=== PATIENT | male | born 1965 | race Two or more races ===

== ENCOUNTER 2025-02-06 15:45 | Inpatient (IN) | payer OTHER ==
[~2025-02-06] VITALS: Ht 175.3 cm; Wt 100.0 kg
[~2025-02-06 15:45] MED LIST: ALBUPOW26; LISI10TA34 PO; MONT10TA23 PO
[2025-02-06] MEDS: IPRATROPIUM BROM 0.5 MG/2.5ML INH SOL NEB ONE (15:57)
[2025-02-06] MEDS: ALBUTEROL SULF 2.5 MG/0.5ML(0.5%) NEB SOLN NEB ONE (15:57)
--- NOTE | 2025-02-06 15:58 | ED.PDOC ---
History of Present Illness HPI Comments 59-year-old male with PMHx Asthma, DM, HTN brought in by EMS presents with a chief complaint of SOB and wheezing. Patient was cleaning out his garage when he apparently started having an allergic reaction. Patient called EMS and they arrived on scene and patient was having a difficult time breathing. Patient was given a dual nebulizer treatment, Benadryl, and Magnesium by EMS. Patient was then placed on CPAP. Patients EKG shows Sinus Tachycardia with a rate of 116. Chief Complaint: Shortness of Breath Time Seen by MD: 15:48 Reviewed Notes: Medications, Allergies Allergies: Coded Allergies: NO KNOWN ALLERGIES (Unverified , 06/30/11) Home Meds Reported Medications Lisinopril (Lisinopril) 10 Mg Tab, 10 MG PO DAILY, TAB 07/03/21 Montelukast Sodium (Singulair) 10 Mg Tab, 10 MG PO DAILY, TAB 07/03/21 [Albuterol] (Albuterol) No Conflict Check, 2 PUFF PRN 06/30/11 Information Source: Emergency Med Personnel Mode of Arrival: EMS Severity: Moderate Timing: Minutes Duration: Since onset Prehospital treatment: Breathing Tx, Field Clerk, Oxygen Past Medical History PAST MEDICAL HISTORY: Asthma, HTN Surgical History: Denies all surgeries Family History Family History: Reviewed,noncontributory to illness Social History Smoker: Cigarettes, Other Alcohol: Denies ETOH Use Drugs: Marijuana Lives In: Home Constitutional: denies: chills, diaphoresis, fatigue, fever, malaise, sweats, weakness, others EENTM: denies: blurred vision, double vision, ear bleeding, ear discharge, ear drainage, ear pain, ear ringing, eye pain, eye redness, hearing loss, mouth pain, mouth swelling, nasal discharge, nose bleeding, nose congestion, nose pain, photophobia, tearing, throat pain, throat swelling, voice changes, others Respiratory: reports: shortness of breath, wheezing; denies: cough, hemoptysis, orthopnea, SOB at rest, SOB with excertion, stridor, others Cardiovascular: denies: chest pain, dizzy spells, diaphoresis, Dyspnea on exertion, edema, irregular heart beat, left arm pain, lightheadedness, palpitations, PND, syncope, others Gastrointestinal: denies: abdomen distended, abdominal pain, blood streaked bowels, constipated, diarrhea, dysphagia, difficulty swallowing, hematemesis, melena, nausea, poor appetite, poor fluid intake, rectal bleeding, rectal pain, vomiting, others Genitourinary: denies: burning, dysuria, flank pain, frequency, hematuria, incontinence, penile discharge, penile sore, pain, testicle pain, testicle swelling, urgency, others Neurological: denies: dizziness, fainting, headache, left sided numbness, left sided weakness, numbness, paresthesia, pre-existing deficit, right sided numbness, right sided weakness, seizure, speech problems, tingling, tremors, weakness, others Musculoskeletal: denies: back pain, gout, joint pain, joint swelling, muscle pain, muscle stiffness, neck pain, others Integumetry: denies: bruises, change in color, change in hair/nails, dryness, laceration, lesions, lumps, rash, wounds, others Allergic/Immunocompromised: denies: Difficulty Healing, Frequent Infections, Hives, Itching, others Hematologic/Lymphatic: denies: anemia, blood clots, easy bleeding, easy bruising, swollen glands, others Endocrine: denies: excessive hunger, excessive sweating, excessive thirst, excessive urination, flushing, intolerance to cold, intolerance to heat, unexplained weight gain, unexplained weight loss, others Psychiatric: denies: anxiety, bipolar disorder, depression, hopeless, panic disorder, schizophrenia, sleepless, suicidal, others All Other Systems: Reviewed and Negative Physical Exam General Appearance: Normal, Severe Distress HEENT: Normal ENT Inspection, Pharynx Normal, TMs Normal Neck: Full Range of Motion, Non-Tender, Normal, Normal Inspection Respiratory: Accessory Muscle Use, Chest Non-Tender, Respiratory Distress, Wheezing Cardiovascular: No Edema, No JVD, No Murmur, No Gallop, Normal Peripheral Pulses, Tachycardia Breast Exam: Deferred Gastrointestinal: No Organomegaly, Non Tender, No Pulsatile Mass, Normal Bowel Sounds, Soft Genitalia: Deferred Pelvic: Deferred Rectal: Deferred Extremities: No calf tenderness, Normal capillary refill, Normal inspection, Normal range of motion, Non-tender, No pedal edema Musculoskeletal : Apperance: Normal Neurologic: Alert, audiologist II-XII nml as Tested, No Motor Deficits, Normal Affect, Normal Mood, No Sensory Deficits Cerebellar Function: NOT DONE Reflexes: NOT DONE Skin: Dry, Normal Color, Warm Peripheral Pulses: 3+ Radial (R), 3+ Radial (L) Lymphatic: No Adenopathy Was a procedure done? Was a procedure done?: No EKG EKG : Pulse Rate (adult): 116 [place]: Normal Cardiac Rhythm: ST Block: None Hypertrophy: None ST: Normal Differential Dx Considerations may include: COPD Electrolyte imbalance X-Ray, Labs, Meds, VS Vital Signs Date Time Temp Pulse Resp B/P (MAP) Pulse Ox O2 Delivery O2 Flow Rate FiO2 02/06/25 16:00 96 Simple Mask* 6 50 02/06/25 15:59 98.4 111 23 146/98 (114) 96 98.4 02/06/25 15:58 116 02/06/25 15:55 116 02/06/25 15:52 20 97 Nasal Cannula* 2 28 02/06/25 15:51 116 02/06/25 15:45 97.6 117 27 146/98 (114) 92 97.6 02/06/25 15:45 27 97 Nasal Cannula* 2 28 Lab Test 02/06/25 16:07 Range/Units White Blood Count 9.5 4.4-10.8 10^3/uL Red Blood Count 4.67 4.5-5.90 10^6/uL Hemoglobin 14.4 13.5-17.5 g/dL Hematocrit 42.1 41.0-53.0 % Mean Corpuscular Volume 90.3 80.0-100.0 fL Mean Corpuscular Hemoglobin 30.8 28.0-32.0 pg Mean Corpuscular Hemoglobin Concent 34.1 32.0-36.0 g/dL Red Cell Distribution Width 13.5 11.8-14.3 % Platelet Count 248 140-450 10^3/uL Mean Platelet Volume 9.0 6.9-10.8 fL Neutrophils (%) (Auto) 59.0 37.0-80.0 % Lymphocytes (%) (Auto) 27.2 10.0-50.0 % Monocytes (%) (Auto) 7.6 0.0-12.0 % Eosinophils (%) (Auto) 5.8 0.0-7.0 % Basophils (%) (Auto) 0.4 0.0-2.0 % Neutrophils # (Auto) 5.6 1.6-8.6 10 ^3/uL Lymphocytes # (Auto) 2.6 0.4-5.4 10 ^3/uL Monocytes # (Auto) 0.7 0-1.3 10 ^3/uL Eosinophils # (Auto) 0.6 0-0.8 10 ^3/uL Basophils # (Auto) 0 0-0.2 10 ^3/uL Nucleated Red Blood Cells 0.1 % Sodium Level 140 136-145 mmol/L Potassium Level 3.5 3.5-5.1 mmol/L Chloride Level 102 98-107 mmol/L Carbon Dioxide Level 26 20-31 mmol/L Anion Gap 12 5-15 Blood Urea Nitrogen 15 9-23 mg/dL Creatinine 1.02 0.700-1.30 mg/dL Glomerular Filtration Rate Calc 85 >90 mL/min BUN/Creatinine Ratio 14.7 10.0-20.0 Serum Glucose 111 H 74-106 mg/dL Calcium Level 9.0 8.7-10.4 mg/dL Troponin I High Sensitivity 64 *H </=54 ng/L Current Medications Medications (Trade) Dose Ordered Sig/Nathaniel Route Start Time Stop Time Status Last Admin Albuterol (Ventolin Medneb) 20 mg ONCE ONCE NEB 02/06/25 16:00 02/06/25 16:01 DC 02/06/25 15:57 Ipratropium [place] (Atrovent Medneb) 1 mg ONCE ONCE NEB 02/06/25 16:00 02/06/25 16:01 DC 02/06/25 15:57 Methylprednisolone Sodium Succinate (Solu Medrol) 40 mg ONCE ONCE IV 02/06/25 16:00 02/06/25 16:01 DC 02/06/25 16:09 Magnesium Sulfate/ Dextrose 100 ml @ 100 mls/hr ONCE ONCE IV 02/06/25 16:00 02/06/25 16:59 DC 02/06/25 16:09 Patient alert pain Came in shortness a breath. Placed on oxygen. Was given breathing treatment. Was given magnesium. Was given steroid. Using accessory muscles when he arrived. He continues to smoke cigarettes. Counseled patient on effects of smoking cigarettes for 15 minutes. Chest x-ray reviewed does show mild inflammation. Cardiac marker slightly elevated. Demand ischemia. EKG does not show any acute changes. WBC within normal limits. Hemoglobin within normal limits. No leg swelling. Was given Lovenox. Explained to the patient that he will be admitted with oxygen. Continue monitoring. Time of 1ST Reevaluation: 15:48 Reevaluation 1ST: Unchanged Time of 2ND Reevaluation: 15:48 (EXPLAINED TO THE PATIENT THAT THEY MAY BE STAYING WITH US IN THE HOSPITAL, BUT IF STABLE FOR DISCHARGE, THEY WILL BE NOTIFIED AND SENT HOME. ) Patient Education/Counseling: Diagnosis, Treatment Family Education/Counseling: No Family Present Departure 1 Departure Time of Disposition: 17:20 Impression: Primary Impression: Acute respiratory failure Qualified Codes: J96.01 - Acute respiratory failure with hypoxia Additional Impressions: Pneumonitis Demand ischemia Disposition: ADMITTED INPATIENT Admit to: Med Surg Condition: Guarded Critical Care Note Critical Care Time?: Yes (90 min-critical care time only) Critical care comment: Placed oxygen Stability Stability form required: No Heart Score Heart Score: Heart Score Response (Comments) Value History Slightly Suspicious 0 EKG Normal 0 Age 45-64 1 Risk Factors >3 or Hx ASHD 2 Troponin 1-2 x's Normal limit 1 Total 4 I personally scribed for HARPREET POPE MD ([email or web address]) on 02/06/25 at 15:57. Electronically submitted by Robert Ayala ([email or web address]). HARPREET POPE MD February 06, 2025 15:57
[2025-02-06 16:00] VITALS: O2SAT 96
[2025-02-06] MEDS: methylPREDNISolone SOD SUCC 40 MG/ML VL IV ONE (16:09)
[2025-02-06] MEDS: MAGNESIUM SULFATE 1GM/100ML 100 ML IV ONE (16:09)
--- NOTE | 2025-02-06 16:31 | DVH ---
INDICATION: sob TECHNIQUE: Frontal view of the chest. COMPARISON: CHEST PORTABLE on DOS: 07/01/21 FINDINGS: Findings:. The heart and mediastinal contours are grossly unremarkable. There is no evidence of pleu ral disease. The lungs are clear. The bony structures of the chest are intact without fracture. IMPRESSION: 1. No evidence of acute disease.
[2025-02-06 16:36] LABS: Basophils # (auto) 0 10 ^3/uL (0-0.2); Basophils % (auto) 0.4 % (0.0-2.0); Eosinophils # (auto) 0.6 10 ^3/uL (0-0.8); Eosinophils % (auto) 5.8 % (0.0-7.0); Hematocrit 42.1 % (41.0-53.0); Hemoglobin 14.4 g/dL (13.5-17.5); Lymphocytes # (auto) 2.6 10 ^3/uL (0.4-5.4); Lymphocytes % (auto) 27.2 % (10.0-50.0); Mean Corpuscular Hemoglobin 30.8 pg (28.0-32.0); Mean Corpuscular Hgb Conc. 34.1 g/dL (32.0-36.0); Mean Corpuscular Volume 90.3 fL (80.0-100.0); Monocytes # (auto) 0.7 10 ^3/uL (0-1.3); Monocytes % (auto) 7.6 % (0.0-12.0); Neutrophils # (auto) 5.6 10 ^3/uL (1.6-8.6); Nucleated Red Blood Cells % 0.1 %; Platelet Count (auto) 248 10^3/uL (140-450); Red Blood Cells 4.67 10^6/uL (4.5-5.90); Red Cell Distribution Width 13.5 % (11.8-14.3); White Blood Cell 9.5 10^3/uL (4.4-10.8)
[2025-02-06 16:37] LABS: Chloride 102 mmol/L (98-107); Potassium 3.5 mmol/L (3.5-5.1); Sodium 140 mmol/L (136-145)
[2025-02-06 16:38] LABS: Anion Gap 12 (5-15); Carbon Dioxide 26 mmol/L (20-31)
[2025-02-06 16:44] LABS: BUN/Creatinine Ratio 14.7 (10.0-20.0); Blood Urea Nitrogen 15 mg/dL (9-23); Glucose 111 mg/dL (74-106)
[2025-02-06] MEDS: ENOXAPARIN SOD 100 MG/1 ML SYRINGE SC ONE (17:39)
[2025-02-06] MEDS: cefTRIAXone 1GM/50ML D5W 50 ML IV ONE (17:39)
[2025-02-06] MEDS ORDERED: ACETAMINOPHEN 325 MG TAB PO PRN (18:15)
[2025-02-06] MEDS ORDERED: HYDROcodone-ACET 5/325MG TAB PO PRN (18:15)
[2025-02-06] MEDS ORDERED: ONDANSETRON HCL 4 MG/2 ML VIAL IV PRN (18:15)
[2025-02-06] MEDS ORDERED: DOCUSATE SOD 100 MG CAP PO PRN (18:15)
[2025-02-06 18:35] VITALS: BP 122/68; PULSE 109; RESP 17; TEMP 98.4; O2SAT 91
--- NOTE | 2025-02-06 19:13 | DVHHP2 ---
History of Present Illness Reason for Visit: Acute respiratory failure with hypoxia History of Present Illness The patient is a 59-year old male with past medical history of asthma and hypertension presented to [facility] ED with complaint of shortness of breaths. Patient's symptoms progressively get worse with wheezing, increased work of breathing, getting worse that prompted this visit. Patient was seen and evaluated in the ED, laboratory data shows WBC 9.5 platelets 248, sodium 140, potassium 3.5, BUN 15, creatinine 1.02, glucose 111, troponin 64, blood pressure 146/98, heart rate 112, temperature 98.4� F, O2 saturation 96% on simple mask. Patient was started on IV Solu-Medrol, given breathing treatment, please see medication orders section in the computer. On my assessment, patient denied chest pain, no headache, no dizziness, no diaphoresis, currently on oxygen, no nausea, no vomiting, no fever, no chills. Patient was admitted for further evaluation and medical management. Past Medical History Asthma, HTN Past Surgical History Denies all surgeries Family History Reviewed, noncontributory to the management of this case. Past Social History The patient lives at home, denies alcohol abuse, smokes cigarettes, uses marijuana. Review of Systems Constitutional: No: Fever, Chills, Sweats, Weakness, Malaise, Other Eyes: No: Pain, Vision change, Conjunctivae inflammation, Eyelid inflammation, Other, Redness ENT: No: Ear pain, Ear discharge, Nose pain, Nose discharge, Nose congestion, Mouth pain, Mouth swelling, Throat pain, Throat swelling, Other Respiratory: Shortness of breath, Wheezing; No: Cough, Dry, SOB with excertion, Hemoptysis, Pleuritic Pain, Sputum, Wheezing, Other Cardiovascular: No: Chest Pain, Palpitations, Orthopnea, Paroxysmal Noc. Dyspnea, Edema, Lt Headedness, Other Gastrointestinal: No: Nausea, Vomiting, Abdominal Pain, Diarrhea, Constipation, Melena, Hematochezia, Other Genitourinary: No Dysuria, No Frequency, No Incontinence, No Hematuria, No Retention, No Other Musculoskeletal: No: other, neck pain, shoulder pain, arm pain, back pain, hand pain, leg pain, foot pain Skin: No: Rash, Lesions, Jaundice, Bruising, Other Neurological: No: Weakness, Numbness, Incoordination, Change in speech, Confusion, Seizures, Other Allergies: Coded Allergies: NO KNOWN ALLERGIES (Unverified , 06/30/11) Medications Current Medications Medications Dose Ordered Sig/Nathaniel Route Start Time Stop Time Status Last Admin Dose Admin Albuterol 2.5 mg Q4HPRN PRN NEB 02/06/25 18:15 Ipratropium [place] 0.5 mg Q4HPRN PRN NEB 02/06/25 18:15 Methylprednisolone Sodium Succinate 40 mg Q8HR IV 02/06/25 22:00 Famotidine 20 mg Q12HR IV 02/06/25 22:00 Hydralazine HCl 10 mg Q6HP PRN IV 02/06/25 18:15 Metoprolol Tartrate 25 mg BID PO 02/06/25 22:00 Sodium Chloride 10 ml Q8HR IV 02/06/25 22:00 Acetaminophen/ Hydrocodone Bitart 1 tab Q4HP PRN PO 02/06/25 18:15 Ondansetron HCl 4 mg Q4HP PRN IV 02/06/25 18:15 Docusate Sodium 100 mg BIDPRN PRN PO 02/06/25 18:15 Acetaminophen 650 mg Q6HP PRN PO 02/06/25 18:15 Exam Vital Signs Vital Signs Date Time Temp Pulse Resp B/P (MAP) Pulse Ox O2 Delivery O2 Flow Rate FiO2 02/06/25 18:35 98.4 109 17 122/68 91 2.0 98.4 02/06/25 16:00 Simple Mask* 50 General Appearance: Alert, Oriented X3, Cooperative, No acute distress HEENT: Atraumatic, EOMI, Mucous membr. moist/pink Respiratory: Normal air movement, Other (Diminished breath sounds) Cardiovascular: Regular rate, Normal S1, Normal S2, No murmurs Abdominal: Normal bowel sounds, Soft, No tenderness, No hepatospenomegaly, No masses Extremities: No clubbing, No cyanosis, No edema, Normal pulses, No tendernes s/swelling Skin: No rashes, No breakdown, No significant lesion Neuro: Normal gait, Normal speech, Strength at 5/5 X4 ext, Normal tone, Sensation intact, Cranial nerves 3-12 NL, Reflexes 2+ Psych/Mental Status: Mental status NL, Mood NL Labs/Xrays Labs Test 02/06/25 16:07 Range/Units White Blood Count 9.5 4.4-10.8 10^3/uL Red Blood Count 4.67 4.5-5.90 10^6/uL Hemoglobin 14.4 13.5-17.5 g/dL Hematocrit 42.1 41.0-53.0 % Mean Corpuscular Volume 90.3 80.0-100.0 fL Mean Corpuscular Hemoglobin 30.8 28.0-32.0 pg Mean Corpuscular Hemoglobin Concent 34.1 32.0-36.0 g/dL Red Cell Distribution Width 13.5 11.8-14.3 % Platelet Count 248 140-450 10^3/uL Mean Platelet Volume 9.0 6.9-10.8 fL Neutrophils (%) (Auto) 59.0 37.0-80.0 % Lymphocytes (%) (Auto) 27.2 10.0-50.0 % Monocytes (%) (Auto) 7.6 0.0-12.0 % Eosinophils (%) (Auto) 5.8 0.0-7.0 % Basophils (%) (Auto) 0.4 0.0-2.0 % Neutrophils # (Auto) 5.6 1.6-8.6 10 ^3/uL Lymphocytes # (Auto) 2.6 0.4-5.4 10 ^3/uL Monocytes # (Auto) 0.7 0-1.3 10 ^3/uL Eosinophils # (Auto) 0.6 0-0.8 10 ^3/uL Basophils # (Auto) 0 0-0.2 10 ^3/uL Nucleated Red Blood Cells 0.1 % Sodium Level 140 136-145 mmol/L Potassium Level 3.5 3.5-5.1 mmol/L Chloride Level 102 98-107 mmol/L Carbon Dioxide Level 26 20-31 mmol/L Anion Gap 12 5-15 Blood Urea Nitrogen 15 9-23 mg/dL Creatinine 1.02 0.700-1.30 mg/dL Glomerular Filtration Rate Calc 85 >90 mL/min BUN/Creatinine Ratio 14.7 10.0-20.0 Serum Glucose 111 H 74-106 mg/dL Calcium Level 9.0 8.7-10.4 mg/dL Troponin I High Sensitivity 64 *H </=54 ng/L PATIENT: LEONIE UMANA ACCT: [id number] UNIT: [id number] : 1965 LOC: ER ROOM / BED: / AGE / SEX: 59 / M ADM STATUS: REG ER SERVICE 1606 ORDERING PHYSICIAN: HARPREET POPE MD PROCEDURE(s): CXRP - CHEST PORTABLE REASON: sob ORDER NUMBER(s): [id number], ACCESSION NUMBER(s): [id number] INDICATION: sob TECHNIQUE: Frontal view of the chest. COMPARISON: CHEST PORTABLE on DOS: 07/01/21 FINDINGS: Findings: The heart and mediastinal contours are grossly unremarkable. There is no evidence of pleural disease. The lungs are clear. The bony structures of the chest are intact without fracture. IMPRESSION: 1. No evidence of acute disease. Assessment/Plan Assessment/Plan Acute respiratory failure Demand ischemia Pneumonitis Acute respiratory failure with hypoxia Plan 1. Admit to telemetry units 2. Breathing treatment 3. Pain control management 4. Management of fluids and electrolytes 5. Consultation for hospitalist 6. Diagnostic tests chest x-ray 7. DVT prophylaxis-on SCDs 8. Repeat labs CBC, CMP in a.m. 9. Continue with current medical management 10. Treatment plan discussed with patient and RN. Patient verbalized understanding. Plan discussed with: Patient, Other (RN) My Orders Orders - WILLIAM SUN DNP Procedure Category Date Status Time Albuterol Medneb PHA 02/06/25 In Process (Ventolin Medneb) 18:15 Ipratropium Medneb PHA 02/06/25 In Process (Atrovent Medneb) 18:15 Methylprednisolone PHA 02/06/25 In Process Sod Succ (Solu Medrol 22:00 Famotidine Injection PHA 02/06/25 In Process (Pepcid Injection) 22:00 Hydralazine Injection PHA 02/06/25 In Process (Apresoline Inject 18:15 Metoprolol Tartrate PHA 02/06/25 In Process Tablet (Lopressor Ta 22:00 Allergies GERALDINE 02/06/25 In Process 18:04 Code Status CODE 02/06/25 Transmitted 18:04 Sodium Chloride Lock PHA 02/06/25 In Process (Saline Lock Ns) 22:00 Oxygen Per Hour RT 02/06/25 Transmitted 18:04 Hydrocodone-Acet PHA 02/06/25 In Process 5/325mg Tab ([place] 18:15 Ondansetron Hcl PHA 02/06/25 In Process (Zofran) 18:15 Docusate Sodium PHA 02/06/25 In Process Capsule (Colace 18:15 Complete Blood Count LAB 02/07/25 Verified 04:00 Comprehensive LAB 02/07/25 Verified Metabolic Panel 04:00 Cardiac DIET 02/06/25 Transmitted Diet-2gna,Lofat,Lochol Dinner Condition: Serious GERALDINE 02/06/25 In Process 18:04 Acetaminophen Tablet PHA 02/06/25 In Process (Tylenol Tablet) 18:15 Bedrest With Bathroom GERALDINE 02/06/25 In Process Privileg 18:04 Sequential GERALDINE 02/06/25 In Process Compression Device Problem List: (1) Acute respiratory failure (2) Demand ischemia (3) Pneumonitis (4) Acute respiratory failure with hypoxia Date of Service: February 06, 2025 Billing Provider: WILLIAM SUN DNP Common Visit Codes: [id number] INP/OBS CARE (HIGH) WILLIAM SUN DNP February 06, 2025 19:13
[2025-02-06] MEDS ORDERED: NITROGLYCERIN 0.4 MG SL TAB SL PRN (19:15)
[2025-02-06] MEDS ORDERED: MORPHINE SULFATE INJ 2 MG/ml SYRG IV PRN (19:15)
[2025-02-06 21:00] VITALS: PULSE 98; RESP 18; O2SAT 94
[2025-02-06] MEDS: METOPROLOL TARTRATE 25 MG TAB PO SCH (22:01)
[2025-02-06] MEDS: FAMOTIDINE (10MG/ML) 2ML VL IV SCH (22:02)
[2025-02-06] MEDS: methylPREDNISolone SOD SUCC 40 MG/ML VL IV SCH (22:02)
[2025-02-06] MEDS: SODIUM CHLOR 0.9% PF (SALINE LOCK) 10ML VIAL/SYR IV SCH (22:02)
[2025-02-07] VITALS (9 sets, daily range): BP systolic 141; BP diastolic 65; PULSE 61–78; RESP 13–18; TEMP 98.2; O2SAT 94–99
[2025-02-07] MEDS: IPRATROPIUM BROM 0.5 MG/2.5ML INH SOL NEB PRN (02:41)
[2025-02-07] MEDS: ALBUTEROL SULF 2.5 MG/0.5ML(0.5%) NEB SOLN NEB PRN (02:41)
[2025-02-07 06:08] LABS: Basophils # (auto) 0 10 ^3/uL (0-0.2); Basophils % (auto) 0.1 % (0.0-2.0); Eosinophils # (auto) 0 10 ^3/uL (0-0.8); Eosinophils % (auto) 0.1 % (0.0-7.0); Hematocrit 42.1 % (41.0-53.0); Hemoglobin 14.3 g/dL (13.5-17.5); Lymphocytes # (auto) 0.6 10 ^3/uL (0.4-5.4); Lymphocytes % (auto) 10.4 % (10.0-50.0); Mean Corpuscular Hemoglobin 30.5 pg (28.0-32.0); Mean Corpuscular Hgb Conc. 34.1 g/dL (32.0-36.0); Mean Corpuscular Volume 89.6 fL (80.0-100.0); Monocytes # (auto) 0.1 10 ^3/uL (0-1.3); Monocytes % (auto) 1.6 % (0.0-12.0); Neutrophils # (auto) 4.9 10 ^3/uL (1.6-8.6); Neutrophils % (auto) 87.8 % (37.0-80.0); Nucleated Red Blood Cells % 0.2 %; Platelet Count (auto) 250 10^3/uL (140-450); Red Cell Distribution Width 13.4 % (11.8-14.3); White Blood Cell 5.5 10^3/uL (4.4-10.8)
[2025-02-07 06:11] LABS: Alanine Aminotransferase 18 U/L (7-40); Albumin 4.5 g/dL (3.2-4.8); Alkaline Phosphatase 52 U/L (46-116); Anion Gap 11 (5-15); Aspartate Aminotransferase 14 U/L (13-40); BUN/Creatinine Ratio 19.2 (10.0-20.0); Blood Urea Nitrogen 15 mg/dL (9-23); Calcium 9.2 mg/dL (8.7-10.4); Carbon Dioxide 24 mmol/L (20-31); Chloride 103 mmol/L (98-107); Potassium 4.3 mmol/L (3.5-5.1); Sodium 138 mmol/L (136-145); Total Protein 6.9 g/dL (5.7-8.2)
[2025-02-07 06:12] LABS: Bilirubin, Total 0.9 mg/dL (0.2-1.0)
[2025-02-07 06:19] LABS: Glucose 167 mg/dL (74-106)
--- NOTE | 2025-02-07 11:53 | DVHPN2 ---
Progress Note Date Seen: February 07, 2025 Medical Necessity Reason Pt with a Central, PICC or Fol: No Subjective Patient reports: No new complaints Review of Systems: HEENT:Normal, CVS:Normal, RESPIRATORY:Normal, GI:Normal, :Normal, MSK:Normal, NEURO:Normal Objective vital signs Vital Sign Date Time Temp Pulse Resp B/P (MAP) Pulse Ox O2 Delivery O2 Flow Rate FiO2 02/07/25 10:55 82 155/86 02/07/25 10:00 27 96 02/07/25 08:00 Nasal Cannula* 2 28 02/07/25 08:00 98.8 98.8 medications Current Medications Medications Dose Ordered Sig/Nathaniel Route Start Time Stop Time Status Last Admin Dose Admin Albuterol 2.5 mg Q4HPRN PRN NEB 02/06/25 18:15 02/07/25 02:41 2.5 MG Ipratropium [place]opold 0.5 mg Q4HPRN PRN NEB 02/06/25 18:15 02/07/25 02:41 0.5 MG Methylprednisolone Sodium Succinate 40 mg Q8HR IV 02/06/25 22:00 02/07/25 06:31 40 MG Famotidine 20 mg Q12HR IV 02/06/25 22:00 02/07/25 10:55 20 MG Hydralazine HCl 10 mg Q6HP PRN IV 02/06/25 18:15 Metoprolol Tartrate 25 mg BID PO 02/06/25 22:00 02/07/25 10:55 25 MG Sodium Chloride 10 ml Q8HR IV 02/06/25 22:00 02/07/25 06:00 10 ML Acetaminophen/ Hydrocodone Bitart 1 tab Q4HP PRN PO 02/06/25 18:15 Ondansetron HCl 4 mg Q4HP PRN IV 02/06/25 18:15 Docusate Sodium 100 mg BIDPRN PRN PO 02/06/25 18:15 Acetaminophen 650 mg Q6HP PRN PO 02/06/25 18:15 Nitroglycerin 0.4 mg Q5MINP PRN SL 02/06/25 19:15 Morphine Sulfate 2 mg Q30M PRN IV 02/06/25 19:15 Examination: GENERAL:Normal, HEENT:Normal, NECK:Normal, LUNGS:Normal, LUNGS:Abnormal (on oxygen, decreased bilateral), CVS:Normal, ABDOMEN:Normal, MSK:Normal, SKIN:Normal, NEURO:Normal, :Normal laboratory and microbiology Laboratory Tests 02/07/25 05:32 Test 02/07/25 05:32 Range/Units Serum Glucose 167 H 74-106 mg/dL Problem List/Assessment/Plan Problem List/Assessment/Plan #1 acute resp failure: cont oxygen #2 asthma with exacerbation: cont meds #3 htn #4 ?pneumonia; antibiotics #5 obesity advance care planning- full code- time spent 18 mins Plan discussed with: Patient My Orders My Orders Orders - JEANETH ANTON MD Procedure Category Date Status Time Ceftriaxone Ivpb PHA 02/08/25 Verified Rocephin 09:00 Azithromycin Tablet PHA 02/07/25 Verified (Zithromax Tablet) 12:00 Azithromycin Tablet PHA 02/08/25 Verified (Zithromax Tablet) 10:00 Albuterol Medneb PHA 02/07/25 Verified (Ventolin Medneb) 14:00 Ipratropium Medneb PHA 02/07/25 Verified (Atrovent Medneb) 14:00 Lisinopril Tablet PHA 02/08/25 Verified (Zestril Tablet) 10:00 Urinalysis LAB 02/07/25 Uncollected 11:49 Date of Service: February 07, 2025 Billing Provider: JEANETH ANTON MD Common Visit Codes: [id number] INP/OBS CARE(HIGH) Secondary Visit Codes: 01699-[id number] CARE PLAN 30 MINUTES JEANETH ANTON MD February 07, 2025 11:53
[2025-02-07] MEDS: AZITHROMYCIN 250 MG TAB PO ONE (12:15)
[2025-02-07] MEDS: MONTELUKAST SODIUM 10 MG TAB PO ONE (13:31)
[2025-02-07] MEDS: ALBUTEROL SULF 2.5 MG/0.5ML(0.5%) NEB SOLN NEB SCH (14:01)
[2025-02-07] MEDS: IPRATROPIUM BROM 0.5 MG/2.5ML INH SOL NEB SCH (14:01)
[2025-02-08] VITALS (11 sets, daily range): BP systolic 135–164; BP diastolic 65–94; PULSE 58–89; RESP 17–28; TEMP 97.1–98.2; O2SAT 93–99
[2025-02-08 05:51] LABS: Urine Bacteria None Seen /hpf (None Seen)
[2025-02-08 06:36] LABS: Urine Blood Negative /uL (Negative); Urine Clarity Clear (Clear); Urine Color Light-Yellow (Yellow); Urine Hyaline Cast FEW /lpf (0 - 2); Urine Mucus FEW (None Seen); Urine Protein, UAD Negative (Negative); Urine Specific Gravity 1.022 (1.001-1.035); Urine Squamous Epithelial Cell FEW /hpf (<5); Urine Urobilinogen Normal (Negative); Urine WBC 35 /HPF (0-3)
[2025-02-08] MEDS: AZITHROMYCIN 250 MG TAB PO SCH (09:03)
[2025-02-08] MEDS: cefTRIAXone 1GM/50ML D5W 50 ML IV SCH (09:03)
[2025-02-08] MEDS: LISINOPRIL 5 MG TAB PO SCH (09:04)
--- NOTE | 2025-02-08 10:17 | ECG ---
[facility], [place] Test Date: 2025-02-06 Test Time: 15:51:11 Pat Name: LEONIE UMANA Department: ED Room: 0245T B Gender: M Creative Strategist: EFREN : 1965 Requested By: HARPREET POPE Order Number: [id number] Reading MD: Jimmy Ortega Measurements Intervals [place] Rate: 116 P: 68 GA: 171 QRS: 71 QRSD: 105 T: 43 QT: 329 QTc: 458 Interpretive Statements Sinus tachycardia Low voltage, precordial leads Electronically Signed On 02-08-2025 13:10:21 PDT by Jimmy Ortega Please click the below link to view image of tracing.
[2025-02-08] MEDS: hydrALAZINE HCL 20 MG/ML VL IV PRN (13:35)
--- NOTE | 2025-02-08 14:09 | DVHDS2 ---
Discharge Summary Date of Admission February 06, 2025 at 19:08 Date of Discharge: February 08, 2025 Labs/Diagnostic Data: Laboratory Results Test 02/08/25 05:30 02/07/25 05:32 02/06/25 16:07 Urine Color Light-yellow (Yellow) Urine Clarity Clear (Clear) Urine pH 6.0 (5.0-9.0) Urine Specific [place] 1.022 (1.001-1.035) Urine Protein Negative (Negative) Urine Ketones Negative (Negative) Urine Blood Negative /uL (Negative) Urine Nitrite Negative (Negative) Urine Bilirubin Negative (Negative) Urine Urobilinogen Normal mg/dL (Negative) Urine Leukocyte Esterase 2+ /uL (Negative) Urine RBC 2 /hpf (0 - 3) Urine Microscopic WBC 35 /HPF (0-3) Urine Squamous Epithelial Cells Few /hpf (<5) Urine Bacteria None seen /hpf (None Seen) Urine Hyaline Casts Few /lpf (0 - 2) Urine Mucus Few (None Seen) Urine Glucose 1+ mg/dL (Normal) White Blood Count 5.5 10^3/uL (4.4-10.8) Red Blood Count 4.70 10^6/uL (4.5-5.90) Hemoglobin 14.3 g/dL (13.5-17.5) Hematocrit 42.1 % (41.0-53.0) Mean Corpuscular Volume 89.6 fL (80.0-100.0) Mean Corpuscular Hemoglobin 30.5 pg (28.0-32.0) Mean Corpuscular Hemoglobin Concent 34.1 g/dL (32.0-36.0) Red Cell Distribution Width 13.4 % (11.8-14.3) Platelet Count 250 10^3/uL (140-450) Mean Platelet Volume 8.9 fL (6.9-10.8) Neutrophils (%) (Auto) 87.8 % (37.0-80.0) Lymphocytes (%) (Auto) 10.4 % (10.0-50.0) Monocytes (%) (Auto) 1.6 % (0.0-12.0) Eosinophils (%) (Auto) 0.1 % (0.0-7.0) Basophils (%) (Auto) 0.1 % (0.0-2.0) Neutrophils # (Auto) 4.9 10 ^3/uL (1.6-8.6) Lymphocytes # (Auto) 0.6 10 ^3/uL (0.4-5.4) Monocytes # (Auto) 0.1 10 ^3/uL (0-1.3) Eosinophils # (Auto) 0 10 ^3/uL (0-0.8) Basophils # (Auto) 0 10 ^3/uL (0-0.2) Nucleated Red Blood Cells 0.2 % Sodium Level 138 mmol/L (136-145) Potassium Level 4.3 mmol/L (3.5-5.1) Chloride Level 103 mmol/L (98-107) Carbon Dioxide Level 24 mmol/L (20-31) Anion Gap 11 (5-15) Blood Urea Nitrogen 15 mg/dL (9-23) Creatinine 0.78 mg/dL (0.700-1.30) Glomerular Filtration Rate Calc 103 mL/min (>90) BUN/Creatinine Ratio 19.2 (10.0-20.0) Serum Glucose 167 mg/dL (74-106) Calcium Level 9.2 mg/dL (8.7-10.4) Total Bilirubin 0.9 mg/dL (0.2-1.0) Aspartate Amino Transferase (AST) 14 U/L (13-40) Alanine Aminotransferase (ALT) 18 U/L (7-40) Alkaline Phosphatase 52 U/L (46-116) Total Protein 6.9 g/dL (5.7-8.2) Albumin 4.5 g/dL (3.2-4.8) Troponin I High Sensitivity 64 ng/L (</=54) Other Laboratory Tests 02/07/25 05:32 Brief Hx & Hospital Course: SEE DICTATED NOTE Condition at Discharge: Good Final Diagnosis/Problems List ASTHMA Discharge Disposition: Home Discharge Instruct/Medications Diet: Cardiac 2g Na,low cholest Activity: No Restrictions, As Tolerated Follow Up/Referral: FU WITH PCP IN 1WK Medications: RESUME HOME MEDS SCRIPT TO PHARMACY Discharge Statement: "Patient was advised to return to the ER or call 911 if any headaches, dizziness, shortness of breath, chest pain, abdominal pain, bleeding, fevers, or worsening of medical condition. Patient was counseled about treatment plan, medications, possible side effects, patient�verbalized understanding. All questions were answered to the best of my ability. This discharge took greater then 30 minutes in planning, reviewing documentation, counseling the patient, and discussing with other team members." ASSESSMENT ASSESSMENT Assessment ASTHMA Date of Service: February 08, 2025 Billing Provider: JEANETH ANTON MD Common Visit Codes: 55082-DDF/OBS DISCH DAY >30min JEANETH ANTON MD February 08, 2025 14:09
[2025-02-08] MEDS ORDERED: METH4PAK PO (14:11)
[2025-02-08] MEDS ORDERED: AZIT-185 PO (14:11)
[2025-02-08] MEDS ORDERED: LEVO500T91 PO (14:14)
--- NOTE | 2025-02-08 17:23 | DVHDS ---
DATE OF DISCHARGE: 02/08/2025 HISTORY OF PRESENT ILLNESS: The patient is a 59-year-old male with a history of asthma and hypertension who came with a history of increasing symptoms of wheezing and work of breathing. HOSPITAL COURSE: The patient had a chest x-ray, had no evidence of acute disease. The patient's UA showed leukocyte esterase of 2+. The patient had a troponin of 64. The patient has now improvement in symptoms ____. He will be discharged home to be on Medrol Dosepak along with Levaquin 500 mg daily for 5 days. He will follow up with his primary in 1 week. FINAL DIAGNOSES: Therefore: * Acute respiratory failure. * Asthma with exacerbation. * Likely UTI. * Hypertension. * Questionable pneumonia. * Obesity. * Non-STEMI, likely type 2. Time spent in discharge planning and review of plan with the patient and nursing was 38 minutes. MD SHADI Yi/CHANDU/JAN TID: [id number] RECEIPT: [id number]
[2025-02-08] MEDS ORDERED: MONTELUKAST SODIUM 10 MG TAB PO SCH (22:00)
== END 2025-02-08 17:30 | disposition home or self-care (01) | DRG 189 ==
LOC: EDBD 15:45 → ER 15:45 → OVERFLOW 19:08 → TELE-EAST 02-07 20:58
PROVIDERS: ADMIT Internal Medicine; ATTEND Internal Medicine
DX: J96.01 Acute respiratory failure with hypoxia (principal); J18.9 Pneumonia, unspecified organism; I21.A1 Myocardial infarction type 2; J45.901 Unspecified asthma with (acute) exacerbation; N39.0 Urinary tract infection, site not specified; Z68.32 Body mass index [BMI] 32.0-32.9, adult; E66.9 Obesity, unspecified; E11.9 Type 2 diabetes mellitus without complications; F17.210 Nicotine dependence, cigarettes, uncomplicated; I10 Essential (primary) hypertension; J98.4 Other disorders of lung; Z79.899 Other long term (current) drug therapy
CPT/HCPCS: 36415; 71045; 80048; 80053; 81001; 84484; 85025; 93005; 94640; 94644; 96365; 96367; 96375; 99291; 99292; G0378; J3490